=== PATIENT | female | born 1995 | race Caucasian/White ===

== ENCOUNTER → 2021-07-24 11:59 | Outpatient (CLI) | payer OTHER, SELFPAY ==
--- NOTE | ~2021-07-24 | XR_ITS ---
EXAM: XR thoracic spine 2V HISTORY: M54.9 - Dorsalgia, unspecified; worsening back pain COMPARISON: None available FINDINGS: Mild scoliosis. Vertebral bodies are normally aligned. Vertebral body heights are maintain ed. Disc spaces preserved. Visualized lung parenchyma is clear. IMPRESSION: Mild thoracic scoliosis, otherwise normal thoracic spine radiograph findings. Reviewed, dictated and finalized at location K.
--- NOTE | ~2021-07-24 | XR_ITS ---
EXAM: XR lumbar spine 2-3V HISTORY: M54.9 - Dorsalgia, unspecified; wosening back pain COMPARISON: None available FINDINGS: Mild rotatory lumbar scoliosis. 5 nonrib-bearing lumbar-type vertebral bodies with intact pedicles. Exaggerated lumbar lordosis. Mild disc space narrowing at L4-5. Interspinous narrowing and sclerosis at L4-5. Facet hypertrophy/sclerosis in the lower lumbar spine. IMPRESSION: Mild L4-5 degenerative disc disease, with interspinous narrowing. Mild lower lumbar facet arthropathy . Reviewed, dictated and finalized at location K. IMPRESSION: Mild L4-5 degenerative disc disease, with interspinous narrowing. Mild lower jono mbar facet arthropathy.
--- NOTE | ~2021-07-24 | XR_ITS ---
EXAM: XR_CERV2-3V_CR HISTORY: M54.9 - Dorsalgia, unspecified; worsening back pain COMPARISON: None available FINDINGS: Craniocervical association and atlantoaxial joint are normal. No prevertebral soft tissue swelling. The vertebral body heights and disc spaces are maintained. Normal vertebral body alignment. Normal facets and posterior elements. IMPRESSION: Normal cervical spine radiograph findings. Reviewed, dictated and finalized at location K.
== END ==
PROVIDERS: PCP Nurse Practitioner Family; Visit Provider Nurse Practitioner Family
DX: M41.9 Scoliosis, unspecified (principal); M51.36 Other intervertebral disc degeneration, lumbar region
CPT/HCPCS: 72040; 72070; 72100